=== PATIENT | female | born 1945 | race Caucasian/White ===

== ENCOUNTER 2016-03-31 12:42 | Day surgery (SDC) | payer MEDICARE ==
[2016-03-31 13:00] VITALS: BP 130/88; PULSE 92; RESP 18; TEMP 97.4; O2SAT 94
[2016-03-31] MEDS ORDERED: CALC1TAB30 PO (13:21)
[2016-03-31] MEDS ORDERED: CHOL1TAB42 PO (13:21)
[2016-03-31] MEDS ORDERED: CALC500T42 PO (13:21)
[2016-03-31] MEDS ORDERED: PROC10TA PO (13:21)
[2016-03-31] MEDS ORDERED: B-COTAB41 PO (13:21)
[2016-03-31] MEDS ORDERED: MULT1TAB84 PO (13:21)
[2016-03-31] MEDS ORDERED: ASPI-110 PO (13:21)
[2016-03-31] MEDS ORDERED: FLUO1TAB3 PO (13:21)
[2016-03-31] MEDS ORDERED: ZOFR8TAB PO (13:21)
[2016-03-31 14:05] VITALS: BP 176/96; PULSE 74; RESP 20; TEMP 97.4; O2SAT 94
--- NOTE | 2016-03-31 14:11 | PD.RAD ---
Post Procedure Progress Note Pre Procedure Diagnosis: (1) Fibrin thrombus Post Procedure Diagnosis: (1) Fibrin thrombus Procedure Date: Mar 31, 2016 Supervising Radiologist: Eric Sr Plan of Activity Patient Condition: Good Additional Comments: Port evaluated. The port tubing is in the SVC with a fibrin sheath around the catheter. Contrast goes into the SVC. Fibrin sheath prevents blood withdraw. See PACS Report for procedural detail/treatment Eric Sr MD Mar 31, 2016 14:11
[2016-03-31] MEDS ORDERED: IOHEXOL 350 MG/ML 50 ML BTL (for RAD DIAG) IV ONE (14:25)
--- NOTE | 2016-03-31 14:39 | RADRPT ---
EXAM DATE/TIME: 03/31/2016 13:42 [facility] COMPARISON: No previous studies available for comparison. INDICATIONS : Patient presents with anal cancer in need of port patency evaluation due to inability to aspirate. MEDICAL HISTORY : History of breast cancer 2007 Anal cancer SURGICAL HISTORY : Breast cancer surgery Lumpectomy Port placement Tonsillectomy ENCOUNTER: Initial ACUITY: 1 day PAIN SCORE: 0/10 LOCATION: N/A FLUORO TIME: 0.3 minutes CONTRAST: 5 cc Omnipaque (iohexol) 350 ACCESS: Left subclavian vein MEDICATION(S): 1.) 400 units Heparin IV PROCEDURE : 1. Access of [id number]. 2. Port patency injection. The risks, benefits and alternatives to the procedure were explained and verbal and written consent w as obtained. The patient was placed supine. The port was prepped in sterile fashion. Full sterile t echnique was used, including cap, mask, sterile gloves and gown, and a large sterile sheet. Hand hyg iene and 2% chlorhexidine prep was utilized per protocol for cutaneous antisepsis with appropriate dr y time for site. The previously placed port was accessed and positive contrast was injected for evaluation. Injection demonstrates the tip of the catheter to be at the junction of the subclavian vein and SVC. There is a sizable fibrin sheath evident surrounding the catheter. The contrast which was injected does stay i ntravascular and can be seen within the SVC. CONCLUSION: 1. There is a large fibrin sheath around the distal aspect of the catheter. The injected contrast [place] s stay intravascular and can be seen within the SVC. Eric Sr MD on March 31, 2016 at 14:36 Board Certified Radiologist. This report was verified electronically.
== END 2016-03-31 14:30 | disposition home or self-care (01) ==
LOC: HSDC 12:42 → HRIP 12:49 → HSDC 14:30
PROVIDERS: ATTEND Internal Medicine Hematology & Oncology
DX: Z45.2 Encounter for adjustment and management of vascular access device (principal); C21.1 Malignant neoplasm of anal canal; Z85.3 Personal history of malignant neoplasm of breast
CPT/HCPCS: 36598; J1642; Q9967

== ENCOUNTER 2016-04-01 11:29 | Day surgery (SDC) | payer MEDICARE ==
[~2016-04-01 11:29] MED LIST: ASPI-110 PO; B-COTAB41 PO; CALC1TAB30 PO; CALC500T42 PO; CHOL1TAB42 PO; FLUO1TAB3 PO; MULT1TAB84 PO; PROC10TA PO; ZOFR8TAB PO
[2016-04-01 11:43] VITALS: BP 146/96; PULSE 74; RESP 20; TEMP 98; O2SAT 97
--- NOTE | 2016-04-01 14:13 | PD.RAD ---
Radiology Post PICC Prog Note Pre Procedure Diagnosis: (1) Anal carcinoma Post Procedure Diagnosis: (1) Anal carcinoma Procedure: Right PICC line placement Procedure Date: Apr 01, 2016 Supervising Radiologist Huan Jung Proceduralist/Assist: Chip Arcos RT(R)() Device Side: Right Turkish: 4 single lumen cm: 37 Catheter: Power PICC Plan of Activity Patient to Unit: ROPU Patient Condition: Good PICC line can be used immediately Huan Jung MD Apr 01, 2016 14:12
[2016-04-01] MEDS ORDERED: SODIUM CHLORIDE 0.9% FLUSH 5 ML FLUSH IVF PRN ×2 (14:15)
--- NOTE | 2016-04-01 14:17 | RADRPT ---
EXAM DATE/TIME: 04/01/2016 12:44 [facility] COMPARISON: No previous studies available for comparison. INDICATIONS : Patient with history of anal squamous cell carcinoma in need of PICC line placement for chemotherapy. MEDICAL HISTORY : Breast cancer, Radiation and chemotherapy 2006 SURGICAL HISTORY : Left breast lumpectomy and biopsy, Anal canal mass biopsy, Port placement, Sigmoidoscopy, Tonsillecto my ENCOUNTER: Initial ACUITY: 4-6 months PAIN SCORE: 0/10 FLUORO TIME: 0.35 minutes ACCESS: Right basilic vein MEDICATION(S): 1.) 200 units Heparin IV DEVICE(S): 1.) 4 Croatian single lumen 37 cm Xcela Power PICC PROCEDURE : 1. Ultrasound guidance for venous catheterization. 2. Fluoroscopic guidance. 3. Ultrasound & fluoroscopic guided central venous Power PICC line placement. The risks, benefits and alternatives to the procedure were explained and verbal and written consent w as obtained. The site was prepped in sterile fashion. Full sterile technique was used, including ca p, mask, sterile gloves and gown and a large sterile sheet. Hand hygiene and 2% chlorhexidine prep w as utilized per protocol for cutaneous antisepsis with appropriate dry time for site. The skin and s ubcutaneous tissues were infiltrated with local anesthetic solution. Under direct ultrasound guidance, a suitable vein was accessed and a measuring guidewire was introduc ed and positioned in the central venous system. The ultrasound images depicting access guidance were saved and stored to PACS for permanent record. A Power Injectable PICC line was cut to prescribed length and introduced, positioned with tip at the cavoatrial junction level. The line was flushed and secured per protocol. CONCLUSION: 1. Uncomplicated central venous Power PICC line placement. 2. The PICC line can be used immediately. Huan Jung MD on April 01, 2016 at 14:16 Board Certified Radiologist. This report was verified electronically.
[2016-04-02] MEDS ORDERED: SODIUM CHLORIDE 0.9% FLUSH 5 ML FLUSH IVF SCH (09:00)
== END 2016-04-01 13:05 | disposition home or self-care (01) ==
LOC: HROP 11:29 → HRIP 11:29 → HROP 13:05
PROVIDERS: ATTEND Internal Medicine Hematology & Oncology
DX: Z45.2 Encounter for adjustment and management of vascular access device (principal); C21.0 Malignant neoplasm of anus, unspecified; Z85.3 Personal history of malignant neoplasm of breast
CPT/HCPCS: 36569; 76937; 77001; C1751; J1642

== ENCOUNTER 2016-05-28 17:40 | Inpatient (IN) | payer MEDICARE ==
[~2016-05-28] VITALS: Ht 167.6 cm; Wt 57.3 kg
[2016-05-28 18:00] VITALS: BP 94/59; PULSE 105; RESP 18; TEMP 97.6; O2SAT 96
[2016-05-28 18:15] VITALS: BP 131/59; PULSE 89; RESP 18; O2SAT 96
[2016-05-28] MEDS ORDERED: ASPI81CH CHEW (18:24)
[2016-05-28] MEDS ORDERED: OXYC1CAP PO (18:24)
[2016-05-28] MEDS ORDERED: ONDANSETRON HCL 4 MG/2 ML VIAL IV PUSH ONE (19:00)
[2016-05-28] MEDS ORDERED: HYDROmorphone HCL PF 1 MG/ML VIAL IV PUSH ONE (19:00)
[2016-05-28] MEDS: SODIUM CHLOR 0.9% 1000 ML INJ 1,000 ML IV SCH (19:00)
--- NOTE | 2016-05-28 19:02 | PD ---
HPI Chief Complaint: Pain: Acute or Chronic Time Seen by Provider: 18:34 Travel History International Travel<30 days: No Contact w/Intl Traveler<30days: No Traveled to known affect area: No History of Present Illness HPI This 70-year-old female is complaining of sharp pain in the right upper quadrant of the abdomen, right lower chest laterally. She's been had some of this pain yesterday that seemed to get better and then came back again. The pain is aggravated by deep breathing. Pain is fairly severe at times. She is currently being treated for anal cancer. She has been getting radiation as well as chemotherapy. She finished her chemotherapy 2 weeks ago. She takes oxycodone for the pain. She had breast cancer about 10 years ago PFSH Past Medical History Depression: Yes Cancer: Yes (LEFT BREAST, ANUS) Chemotherapy: Yes Diminished Hearing: No Implanted Vascular Access Dvce: Yes (PORT TO LEFT CHEST (2006)) Radiation Therapy: Yes Tetanus Vaccination: > 5 Years Influenza Vaccination: No ?: Not Tubal Ligation: Yes Past Surgical History Other Surgery: Yes (LEFT LUMPECTOMY 2006) Social History Alcohol Use: Yes (WINE OR LIQUOR, RARE) Tobacco Use: No (E-CIGARETTE) Substance Use: No Allergies-Medications (Allergen,Severity, Reaction): Coded Allergies: No Known Allergies (Unverified , 05/28/16) Reported Meds & Prescriptions Reported Meds & Active Scripts Active Reported Aspirin 81 Mg Chew 81 Mg CHEW DAILY Oxycodone (Oxycodone HCl) 5 Mg Cap 5 Mg PO Q6H PRN Calcium 500 Mg Tab 500 Mg PO DAILY Vitamin D-3 (Cholecalciferol) 2,000 Unit Tab 1 Tab PO DAILY Vitamin B-Complex (B-Complex Vitamins) 1 Tab 1 Tab PO DAILY Multivitamin Adults (Multiple Vitamins W/ Minerals) 1 Tab 1 Tab PO DAILY Calcium 600 + D (Calcium Carbonate-Cholecalciferol) 600-200 Mg-Unit Tab 1 Tab PO DAILY Review of Systems General / Constitutional: No: Fever, Chills Eyes: No: Diploplia, Blurred Vision HENT: No: Headaches Cardiovascular: Positive: Chest Pain or Discomfort Respiratory: Positive: Pleuritic Pain Gastrointestinal: Positive: Diarrhea, Abdominal Pain Genitourinary: No: Urgency, Frequency Musculoskeletal: No: Myalgias, Arthralgias Skin: No Rash, No Itching Neurologic: Positive: Weakness Psychiatric: No: Anxiety, Depression Physical Exam Narrative GENERAL: Chronically ill-appearing female SKIN: Warm and dry. HEAD: Atraumatic. Normocephalic. EYES: Pupils equal and round. No scleral icterus. No injection or drainage. ENT: No nasal bleeding or discharge. Mucous membranes pink and moist. NECK: Trachea midline. No JVD. CARDIOVASCULAR: Regular rate and rhythm. No murmur appreciated. RESPIRATORY: No accessory muscle use. Clear to auscultation. Breath sounds equal bilaterally. GASTROINTESTINAL: Abdomen soft, non-tender, nondistended. Hepatic and splenic margins not palpable. There is some right upper quadrant tenderness MUSCULOSKELETAL: No obvious deformities. No clubbing. No cyanosis. No edema. NEUROLOGICAL: Awake and alert. No obvious cranial nerve deficits. Motor grossly within normal limits. Normal speech. PSYCHIATRIC: Appropriate mood and affect; insight and judgment normal. Data Data Last Documented VS Vital Signs Date Time Temp Pulse Resp B/P Pulse Ox O2 Delivery O2 Flow Rate FiO2 05/28/16 19:30 Nasal Cannula 2 05/28/16 19:15 97.7 92 28 118/65 96 Orders Complete Blood Count With Diff (05/28/16 18:49) Comprehensive Metabolic Panel (05/28/16 18:49) Urinalysis - C+S If Indicated (05/28/16 18:49) Ct Abd/Pel W Iv Contrast(Rout) (05/28/16 18:49) Sodium Chlor 0.9% 1000 Ml Inj (Ns 1000 M (05/28/16 19:00) Ondansetron Inj (Zofran Inj) (05/28/16 19:00) Hydromorphone Pf Inj (Dilaudid Pf Inj) (05/28/16 19:00) Ct Pulmonary Angiogram (05/28/16 ) Urine Culture (05/28/16 19:12) Iohexol 350 Inj (Omnipaque 350 Inj) (05/28/16 20:45) Prothrombin Time / Inr (Pt) (05/28/16 20:50) Act Partial Throm Time (Ptt) (05/28/16 20:50) Labs Laboratory Tests Test 05/28/16 05/28/16 19:12 19:17 Urine Color YELLOW Urine Turbidity CLEAR Urine pH 6.0 Urine Specific [place] 1.028 Urine Protein TRACE mg/dL Urine Glucose (UA) NEG mg/dL Urine Ketones NEG mg/dL Urine Occult Blood NEG Urine Nitrite NEG Urine Bilirubin NEG Urine Leukocyte Esterase TRACE Urine WBC 20-24 /hpf Urine Squamous Epithelial > 8 /hpf Cells Urine Bacteria FEW /hpf Urine Mucus FEW /lpf Microscopic Urinalysis Comment CULTURE INDICATED White Blood Count 5.1 TH/MM3 Red Blood Count 2.97 MIL/MM3 Hemoglobin 9.6 GM/DL Hematocrit 28.1 % Mean Corpuscular Volume 94.8 FL Mean Corpuscular Hemoglobin 32.4 PG Mean Corpuscular Hemoglobin 34.1 % Concent Red Cell Distribution Width 17.4 % Platelet Count 197 TH/MM3 Mean Platelet Volume 7.7 FL Neutrophils (%) (Auto) 80.7 % Lymphocytes (%) (Auto) 6.3 % Monocytes (%) (Auto) 10.3 % Eosinophils (%) (Auto) 2.3 % Basophils (%) (Auto) 0.4 % Neutrophils # (Auto) 4.2 TH/MM3 Lymphocytes # (Auto) 0.3 TH/MM3 Monocytes # (Auto) 0.5 TH/MM3 Eosinophils # (Auto) 0.1 TH/MM3 Basophils # (Auto) 0.0 TH/MM3 CBC Comment DIFF FINAL Differential Comment Sodium Level 136 MEQ/L Potassium Level 4.2 MEQ/L Chloride Level 100 MEQ/L Carbon Dioxide Level 27.0 MEQ/L Anion Gap 9 MEQ/L Blood Urea Nitrogen 21 MG/DL Creatinine 0.69 MG/DL Estimat Glomerular Filtration 84 ML/MIN Rate Random Glucose 99 MG/DL Calcium Level 9.0 MG/DL Total Bilirubin 0.4 MG/DL Aspartate Amino Transf 19 U/L (AST/SGOT) Alanine Aminotransferase 27 U/L (ALT/SGPT) Alkaline Phosphatase 58 U/L Total Protein 7.2 GM/DL Albumin 3.2 GM/DL [facility] Medical Decision Making Medical Screen Exam Complete: Yes Emergency Medical Condition: Yes Medical Record Reviewed: Yes Differential Diagnosis This lady undergoing treatment for squamous cell cancer of the anus has had a fairly recent onset of pain in the right upper quadrant, right lower chest. Differential includes pulmonary embolus, metastatic disease to liver or lung Narrative Course CT scan is positive for pulmonary embolus in the right lower lobe pulmonary arteries. Diagnosis Primary Impression: Pulmonary embolus Admitting Information Admitting Physician Requests: Admit Brennon Gomez MD May 28, 2016 19:02
[2016-05-28 19:15] VITALS: BP 118/65; PULSE 92; RESP 28; TEMP 97.7; O2SAT 96
[2016-05-28 19:30] LABS: BLOOD, URINE NEG (NEG); GLUCOSE,URINE NEG (NEG); KETONE, URINE NEG (NEG); NITRITE,URINE NEG (NEG)
[2016-05-28 19:34] LABS: URINE COLOR YELLOW (YELLW/STRAW)
[2016-05-28 19:37] LABS: CHLORIDE 100 MEQ/L (98-107); POTASSIUM 4.2 MEQ/L (3.5-5.1); SODIUM (NA) 136 MEQ/L (136-145)
[2016-05-28 19:40] LABS: BACTERIA, URINE FEW /hpf; SQUAMOUS EPITHELIAL CELL URINE > 8 /hpf (0-5)
[2016-05-28 19:41] LABS: COMMENT (UR) CULTURE INDICATED; CULTURE IF INDICATED CULTURE INDICATED; MUCUS URINE FEW /lpf (OCC)
[2016-05-28 19:41] LABS: ANION GAP 9 MEQ/L (5-15); BLOOD UREA NITROGEN 21 MG/DL (7-18)
[2016-05-28 19:44] LABS: ALT (GPT) 27 U/L (10-53); AST (GOT) 19 U/L (15-37); GLOMERULAR FILTRATION RATE 84 ML/MIN (>89)
[2016-05-28 19:46] LABS: TOTAL BILIRUBIN ADULT 0.4 MG/DL (0.2-1.0)
[2016-05-28 19:47] LABS: ALKALINE PHOSPHATASE 58 U/L (45-117)
[2016-05-28 19:52] LABS: AUTOMATED NEUTROPHIL # 4.2 TH/MM3 (1.8-7.7); BASOPHIL % 0.4 % (0.0-2.0); EOSINOPHIL # 0.1 TH/MM3 (0-0.4); EOSINOPHIL % 2.3 % (0.0-4.0); HEMATOCRIT 28.1 % (35.0-46.0); HEMO FLAGS DIFF FINAL; LYMPH % 6.3 % (9.0-44.0); LYMPHOCYTE # 0.3 TH/MM3 (1.0-4.8); MEAN CELL VOLUME 94.8 FL (80.0-100.0); MEAN CORPUSCULAR HEMOGLOBIN 32.4 PG (27.0-34.0); MEAN CORPUSCULAR HGB CONC 34.1 % (32.0-36.0); MONO % 10.3 % (0.0-8.0); NEUT % 80.7 % (16.0-70.0); PLATELET COUNT 197 TH/MM3 (150-450); RED BLOOD COUNT 2.97 MIL/MM3 (4.00-5.30); RED CELL DISTRIBUTION WIDTH 17.4 % (11.6-17.2); WHITE BLOOD COUNT 5.1 TH/MM3 (4.0-11.0)
[2016-05-28] MEDS ORDERED: IOHEXOL 350 MG/ML 10 ML VIAL (for RAD DIAG) IV ONE (20:45)
--- NOTE | 2016-05-28 20:58 | RADHPO ---
EXAM DATE/TIME: 05/28/2016 20:16 [facility] COMPARISON: No previous studies available for comparison. INDICATIONS : Right lower chest pain. Shortness of breath. IV CONTRAST: 100 cc Omnipaque 350 (iohexol) IV ; Cumulative dose for multiple exams. RADIATION DOSE: 6.09 CTDIvol (mGy) MEDICAL HISTORY : Carcinoma, anal. Carcinoma, breast. Radiation and chemotherapy. SURGICAL HISTORY : Tubal ligation. Left lumpectomy. Infusaport. ENCOUNTER: Initial ACUITY: 4 - 6 days PAIN SCALE: 3/10 LOCATION: Right lower chest TECHNIQUE: Volumetric scanning of the chest was performed using a pulmonary embolism protocol MIP images were re constructed. Using automated exposure control and adjustment of the mA and/or kV according to patien t size, radiation dose was kept as low as reasonably achievable to obtain optimal diagnostic quality images. FINDINGS: There is pulmonary embolus in the right lower lobe pulmonary arteries. Slight areas of scarring is seen in both lungs with a slight degree of bibasilar atelectasis and/or infiltrate. CONCLUSION: 1. There is pulmonary embolus within right lower lobe pulmonary arteries. 2. Slight bibasilar atelectasis and/or infiltrate is seen. Huber Rico MD on May 28, 2016 at 20:54 Board Certified Radiologist. This report was verified electronically.
--- NOTE | 2016-05-28 21:05 | RADHPO ---
EXAM DATE/TIME: 05/28/2016 20:16 [facility] COMPARISON: No previous studies available for comparison. INDICATIONS : Right upper quadrant pain. History of anal cancer. IV CONTRAST: 100 cc Omnipaque 350 (iohexol) IV ; Cumulative dose for multiple exams. ORAL CONTRAST: No oral contrast ingested. RADIATION DOSE: 7.47 CTDIvol (mGy) MEDICAL HISTORY : Carcinoma, breast. Carcinoma, anal. Radiation therapy. Chemotherapy. SURGICAL HISTORY : Tubal ligation. Left lumpectomy. Infusaport. ENCOUNTER: Initial ACUITY: 4 - 6 days PAIN SCALE: 3/10 LOCATION: Right upper quadrant TECHNIQUE: Volumetric scanning of the abdomen and pelvis was performed. Using automated exposure control and ad justment of the mA and/or kV according to patient size, radiation dose was kept as low as reasonably achievable to obtain optimal diagnostic quality images. FINDINGS: CT Abdomen: The liver, spleen, pancreas, kidneys, adrenals are unremarkable. There is no evidence for any appreciable pathological adenopathy, free fluid, or bowel obstruction. Slight bibasilar atelect asis and/or infiltrate is seen. CT pelvis: There is no evidence for mass, abscess formation, or any significant adenopathy within the pelvis. CONCLUSION: Slight bibasilar atelectasis and/or infiltrate is seen. Huber Rico MD on May 28, 2016 at 20:59 Board Certified Radiologist. This report was verified electronically.
[2016-05-28 21:10] LABS: APTT (PATIENT) 24.6 SEC (24.3-30.1); PROTHROMBIN TIME - PATIENT 10.9 SEC (9.8-11.6)
[2016-05-28] MEDS ORDERED: HEPARIN-D5W INJ 250 ML IV SCH (21:15)
[2016-05-28] MEDS ORDERED: HEPARIN SODIUM - IV 10,000 UNITS/10 ML VIAL IV ONE (21:15)
[2016-05-28] MEDS ORDERED: cefTRIAXone INJ 1,000 MG in SODIUM CHLORIDE 0.9% INJ 100 ML IV ONE (21:30)
[2016-05-28] MEDS: HEPARIN-D5W INJ 250 ML IV SCH (21:42)
[2016-05-28 21:51] VITALS: BP 108/62; PULSE 86; O2SAT 97
--- NOTE | 2016-05-28 22:05 | HHI.HP ---
HPI Service CP Hospitalists Primary Care Physician Fanny Cuevas MD Admission Diagnosis PULMONARY EMBOLUS Chief Complaint: Shortness of breath sent by PCP Travel History International Travel<30 Days: No Contact w/Intl Traveler <30 Da: No Traveled to Known Affected Are: No History of Present Illness This 70-year-old female is complaining of sharp pain in the right upper quadrant of the abdomen, right lower chest laterally. She's been had some of this pain yesterday that seemed to get better and then came back again. The pain is aggravated by deep breathing. Pain is fairly severe at times. She is currently being treated for anal cancer. She has been getting radiation as well as chemotherapy. She finished her chemotherapy 2 weeks ago. She takes oxycodone for the pain. She had breast cancer about 10 years ago In er had CTA positive for rt lower lobe pulmonary embolus,also has UTI and possible lung infiltrate. Review of Systems Respiratory: COMPLAINS OF: Shortness of breath Cardiovascular: COMPLAINS OF: Chest pain Past Family Social History Past Medical History anal cancer on RT and chemo,hx left breast cancer Past Surgical History port left chest,left lumpectomy Reported Medications oxycodone multiple vitamins ,asa Allergies: Coded Allergies: No Known Allergies (Unverified , 05/28/16) Social History rare wine uses e cigg Physical Exam Vital Signs Vital Signs Date Time Temp Pulse Resp B/P Pulse Ox O2 Delivery O2 Flow Rate FiO2 05/28/16 21:51 86 108/62 97 Room Air 05/28/16 19:30 Nasal Cannula 2 05/28/16 19:15 97.7 92 28 118/65 96 Room Air 05/28/16 18:15 89 18 131/59 96 Room Air 05/28/16 18:00 97.6 105 18 94/59 96 Physical Exam GENERAL: This is a well-nourished, well-developed patient, in no apparent distress. SKIN: No rashes, ecchymoses or lesions. Cool and dry. HEAD: Atraumatic. Normocephalic. No temporal or scalp tenderness. EYES: Pupils equal round and reactive. Extraocular motions intact. No scleral icterus. No injection or drainage. ENT: Nose without bleeding, purulent drainage or septal hematoma. Throat without erythema, tonsillar hypertrophy or exudate. Uvula midline. Airway patent. NECK: Trachea midline. No JVD or lymphadenopathy. Supple, nontender, no meningeal signs. CARDIOVASCULAR: Regular rate and rhythm without murmurs, gallops, or rubs. RESPIRATORY: Clear to auscultation. Breath sounds equal bilaterally. No wheezes , rales, or rhonchi. GASTROINTESTINAL: Abdomen soft, non-tender, nondistended. No hepato-splenomegaly , or palpable masses. No guarding. MUSCULOSKELETAL: Extremities without clubbing, cyanosis, or edema. No joint tenderness, effusion, or edema noted. No calf tenderness. Negative Homans sign bilaterally. NEUROLOGICAL: Awake and alert. Cranial nerves II through XII intact. Motor and sensory grossly within normal limits. Five out of 5 muscle strength in all muscle groups. Normal speech. Laboratory Laboratory Tests Test 05/28/16 05/28/16 05/28/16 19:12 19:17 19:19 Urine Color YELLOW Urine Turbidity CLEAR Urine pH 6.0 Urine Specific [place] 1.028 Urine Protein TRACE Urine Glucose (UA) NEG Urine Ketones NEG Urine Occult Blood NEG Urine Nitrite NEG Urine Bilirubin NEG Urine Leukocyte Esterase TRACE Urine WBC 20-24 Urine Squamous Epithelial > 8 Cells Urine Bacteria FEW Urine Mucus FEW Microscopic Urinalysis Comment CULTURE INDICATED White Blood Count 5.1 Red Blood Count 2.97 Hemoglobin 9.6 Hematocrit 28.1 Mean Corpuscular Volume 94.8 Mean Corpuscular Hemoglobin 32.4 Mean Corpuscular Hemoglobin 34.1 Concent Red Cell Distribution Width 17.4 Platelet Count 197 Mean Platelet Volume 7.7 Neutrophils (%) (Auto) 80.7 Lymphocytes (%) (Auto) 6.3 Monocytes (%) (Auto) 10.3 Eosinophils (%) (Auto) 2.3 Basophils (%) (Auto) 0.4 Neutrophils # (Auto) 4.2 Lymphocytes # (Auto) 0.3 Monocytes # (Auto) 0.5 Eosinophils # (Auto) 0.1 Basophils # (Auto) 0.0 CBC Comment DIFF FINAL Differential Comment Sodium Level 136 Potassium Level 4.2 Chloride Level 100 Carbon Dioxide Level 27.0 Anion Gap 9 Blood Urea Nitrogen 21 Creatinine 0.69 Estimat Glomerular Filtration 84 Rate Random Glucose 99 Calcium Level 9.0 Total Bilirubin 0.4 Aspartate Amino Transf 19 (AST/SGOT) Alanine Aminotransferase 27 (ALT/SGPT) Alkaline Phosphatase 58 Total Protein 7.2 Albumin 3.2 Prothrombin Time 10.9 Prothromb Time International 1.0 Ratio Activated Partial 24.6 Thromboplast Time Date/Time Procedure Status Source Growth 05/28/16 19:12 Urine Culture Received Urine Clean Catch Pending Result Diagram: 05/28/16191605/28/161916 Imaging Last 24 hours Impressions Abdomen/Pelvis CT 05/28/16 1849 Signed Impressions: Service Date/Time: May 20:16 - CONCLUSION: Slight bibasilar atelectasis and/or infiltrate is seen. Huber Rico MD CT Angiography 05/28/16 0000 Signed Impressions: Service Date/Time: May 20:16 - CONCLUSION: 1. There is pulmonary embolus within right lower lobe pulmonary arteries. 2. Slight bibasilar atelectasis and/or infiltrate is seen. Huber Rico MD Course in er started on heparin and given rocephin for urine and possible infiltrate Assessment and Plan Problem List: (1) Pulmonary embolus Status: Acute Plan: start heparin as per protocol (2) UTI (urinary tract infection) Status: Acute Plan: start rocephin pending urine culture (3) Lung infiltrate Status: Acute Plan: for now continue rocephin (4) Anal carcinoma Status: Chronic Plan: on treatment will consult oncology Assessment and Plan further plan as case develops Code Status full Discussed Condition With patient Physician Certification 2 Midnight Certification Type: Admission for Inpatient Services Order for Inpatient Services The services are ordered in accordance with Medicare regulations or non- Medicare payer requirements, as applicable. In the case of services not specified as inpatient-only, they are appropriately provided as inpatient services in accordance with the 2-midnight benchmark. Estimated LOS (days): 3 3 days is the estimated time the patient will need to remain in the hospital, assuming treatment plan goals are met and no additional complications. Post-Hospital Plan: Not yet determined Problem Qualifiers (1) Pulmonary embolus: Elpidio James MD May 28, 2016 22:05
[2016-05-28] MEDS ORDERED: SODIUM CHLORIDE 0.9% FLUSH 5 ML FLUSH FLUSH PRN (22:15)
[2016-05-28] MEDS ORDERED: NALOXONE HCL 0.4 MG/ML AMP IV PRN (22:15)
[2016-05-28] MEDS ORDERED: BISACODYL 10 MG SUPP PR PRN (22:15)
[2016-05-28] MEDS ORDERED: ONDANSETRON HCL 4 MG/2 ML VIAL IVP PRN (22:15)
[2016-05-28] MEDS ORDERED: cefTRIAXone INJ 1,000 MG in SODIUM CHLORIDE 0.9% INJ 100 ML IV SCH (23:00)
[2016-05-28 23:30] VITALS: BP 127/69; PULSE 90; RESP 17; TEMP 98.4; O2SAT 94; O2SAT 96
[2016-05-29] VITALS (28 sets, daily range): BP systolic 92–132; BP diastolic 55–70; PULSE 72–90; RESP 15–45; TEMP 98–98.5; O2SAT 93–97
[2016-05-29] MEDS: SODIUM CHLOR 0.9% 1000 ML INJ 1,000 ML IV SCH ×3 (03:15→20:17)
[2016-05-29] MEDS ORDERED: HEPARIN SODIUM - IV 10,000 UNITS/10 ML VIAL IV PRN ×2 (03:15)
[2016-05-29] MEDS ORDERED: CHLORHEXIDINE GLUCONATE 2 % 1 PACK (2 CLOTHS)(extra cloths) TOP PRN (03:30)
[2016-05-29 03:35] LABS: APTT (PATIENT) 54.1 SEC (24.3-30.1)
[2016-05-29] MEDS: CHLORHEXIDINE GLUCONATE 2 % 1 PACK (2 CLOTHS)(taper/protocol) TOP SCH (04:00)
[2016-05-29] MEDS: CALCIUM/VITAMIN D 250 MG/125 U TAB PO SCH (08:49)
[2016-05-29] MEDS: MULTIVITAMINS/MINERALS THERAPEUTIC TAB PO SCH (08:49)
[2016-05-29] MEDS: VITAMIN B COMPLEX/VIT C TAB PO SCH (08:49)
[2016-05-29] MEDS: CALCIUM CARBONATE 1.25 GM (CA 500 MG) TAB PO SCH (08:49)
[2016-05-29] MEDS: CHOLECALCIFEROL (VIT D3) 1000 UNIT TAB PO SCH (08:49)
[2016-05-29] MEDS: SODIUM CHLORIDE 0.9% FLUSH 5 ML FLUSH FLUSH SCH ×2 (08:50→20:17)
[2016-05-29 09:21] LABS: AUTOMATED NEUTROPHIL # 2.1 TH/MM3 (1.8-7.7); BASOPHIL % 0.5 % (0.0-2.0); EOSINOPHIL # 0.1 TH/MM3 (0-0.4); HEMATOCRIT 25.8 % (35.0-46.0); HEMO FLAGS DIFF FINAL; LYMPH % 7.6 % (9.0-44.0); LYMPHOCYTE # 0.2 TH/MM3 (1.0-4.8); MEAN CELL VOLUME 94.9 FL (80.0-100.0); MEAN CORPUSCULAR HGB CONC 32.6 % (32.0-36.0); MONO % 12.8 % (0.0-8.0); NEUT % 74.1 % (16.0-70.0); PLATELET COUNT 170 TH/MM3 (150-450); RED BLOOD COUNT 2.71 MIL/MM3 (4.00-5.30); RED CELL DISTRIBUTION WIDTH 16.9 % (11.6-17.2); WHITE BLOOD COUNT 2.9 TH/MM3 (4.0-11.0)
[2016-05-29 09:51] LABS: APTT (PATIENT) 50.9 SEC (24.3-30.1)
--- NOTE | 2016-05-29 10:49 | HHI.PR ---
Subjective Remarks Patient admitted with pulmonary embolus ,uti,possible infiltrate with recent completion of RT and chemo for anal cancer with follow up CT scan scheduled later this month . I have requested hematology to see patient is now on heparin and her hbg is down to 8.2 ,patient has some pleuritic pain related to her PE otherwise feels well,eating good. I will kept in unit as her labs were abnormal and still has pleuritic pain. Objective Vitals GENERAL: SKIN: Warm and dry. HEAD: Atraumatic. Normocephalic. EYES: Pupils equal and round. No scleral icterus. No injection or drainage. ENT: No nasal bleeding or discharge. Mucous membranes pink and moist. NECK: Trachea midline. No JVD. CARDIOVASCULAR: Regular rate and rhythm. RESPIRATORY: No accessory muscle use. Clear to auscultation. Breath sounds equal bilaterally. GASTROINTESTINAL: Abdomen soft, non-tender, nondistended. Hepatic and splenic margins not palpable. MUSCULOSKELETAL: Extremities without clubbing, cyanosis, or edema. No obvious deformities. NEUROLOGICAL: Awake and alert. No obvious cranial nerve deficits. Motor grossly within normal limits. Five out of 5 muscle strength in the arms and legs. Normal speech. PSYCHIATRIC: Appropriate mood and affect; insight and judgment normal. Vital Signs Date Time Temp Pulse Resp B/P Pulse Ox O2 Delivery O2 Flow Rate FiO2 05/29/16 10:00 80 22 122/66 96 05/29/16 10:00 80 05/29/16 09:00 80 05/29/16 09:00 80 29 115/66 95 05/29/16 08:00 98.2 78 23 117/58 96 05/29/16 08:00 78 05/29/16 07:00 78 05/29/16 07:00 78 20 104/62 97 05/29/16 06:00 80 05/29/16 06:00 78 20 110/67 95 05/29/16 05:00 82 21 114/58 94 05/29/16 04:00 98.5 80 15 120/63 96 05/29/16 04:00 80 05/29/16 03:00 72 15 112/68 96 05/29/16 02:00 76 17 92/57 95 05/29/16 02:00 81 05/29/16 01:00 80 22 111/63 96 05/29/16 00:00 98.4 90 20 130/60 97 3/2/17 23:30 98.4 90 17 127/69 96 05/28/16 23:30 94 Nasal Cannula 2.00 05/28/16 21:51 86 108/62 97 Room Air 05/28/16 19:30 Nasal Cannula 2 05/28/16 19:15 97.7 92 28 118/65 96 Room Air 05/28/16 18:15 89 18 131/59 96 Room Air 05/28/16 18:00 97.6 105 18 94/59 96 05/28/16 05/28/16 05/29/16 15:00 23:00 07:00 Intake Total 100 ml 905 ml Output Total 80 ml 800 ml Balance 20 ml 105 ml Intake Oral 30 ml IV Total 100 ml 875 ml Output Urine Total 80 ml 800 ml # Voids 1 # Bowel Movements 0 Result Diagram: 05/29/16 0900 05/28/16 1917 Imaging Last 24 hours Impressions Abdomen/Pelvis CT 05/28/16 1849 Signed Impressions: Service Date/Time: May 20:16 - CONCLUSION: Slight bibasilar atelectasis and/or infiltrate is seen. Huber Rico MD CT Angiography 05/28/16 0000 Signed Impressions: Service Date/Time: May 20:16 - CONCLUSION: 1. There is pulmonary embolus within right lower lobe pulmonary arteries. 2. Slight bibasilar atelectasis and/or infiltrate is seen. Huber Rico MD A/P Problem List: (1) Pulmonary embolus Status: Acute Plan: start heparin as per protocol (2) UTI (urinary tract infection) Status: Acute Plan: start rocephin pending urine culture (3) Lung infiltrate Status: Acute Plan: for now continue rocephin (4) Anal carcinoma Status: Chronic Plan: on treatment will consult oncology (5) Anemia Status: Chronic Plan: probably related to her recent treatment with chemo and now on heparin await hematology evaluation. Follow up labs. Assessment and Plan continue current meds Problem Qualifiers (1) Pulmonary embolus: Elpidio James MD May 29, 2016 10:49
--- NOTE | 2016-05-29 13:20 | MB ---
cc: [facility]ON[facility]Y CONSULTATION DATE OF CONSULTATION 05/29/2016 DATE OF 07/09/1935 REFERRING PHYSICIAN [facility] physician REASON FOR CONSULTATION 1. Right-sided pulmonary embolus 2. Symptomatic anemia 3. History of anal squamous cell carcinoma; she completed concurrent chemoradiotherapy two weeks ago. CHIEF COMPLAINT Ms. Bonilla reports having had a right-sided posterolateral chest pain for the past 12 days. She reports it was associated with a cough for the past four days. HISTORY OF PRESENT ILLNESS Ms. Bonilla is a pleasant 70-year-old female who is well-known to me from my outpatient practice. Ms. Bonilla was initially referred to me in early February of 2016 after she was diagnosed with a squamous cell carcinoma of the anal canal. She was clinically staged as having T2, N1, M0; stage III disease. She was recommended concurrent chemoradiotherapy with Mitomycin-C/5-FU. She received two treatments cycles between early March 2016 and mid April 2016. She complete treatment just about two weeks ago. The treatment was delivered with curative intent. Ms. Bonilla reports having been in her fair state of health other than having had significant fatigue, but she but had been managing well at home. About 12 days ago, she began to notice an achy pain along the right side of her mid back. The pain radiated across to the lateral aspect of her chest. She reports the pain was worse when she coughed or took in a deep breath. She denies having had any hemoptysis and denies significant difficulty breathing. She reported the symptoms to her primary care physician who recommended evaluation in the emergency department. She presented to the [facility] ER on 05/28/[address] angiogram which revealed pulmonary embolus involving the right lung. The involved branches included the right lower lobe subsegmental branches. She also had right-sided atelectasis/infiltrate. The patient has been initiated on anticoagulation with therapeutic dose heparin infusion. She is also on empiric ceftriaxone for coverage of community-acquired pneumonia. The oncology service been consulted to help manage her anticoagulation. The patient also has significant cytopenias including leukopenia and anemia. PAST MEDICAL HISTORY 1. Anal squamous cell carcinoma initially diagnosed in January of 2016. 2. Invasive ductal carcinoma of the breast currently in remission. 3. Hypertension 4. Depression 5. Osteoporosis PAST SURGICAL HISTORY 1. Left breast lumpectomy with sentinel lymph node biopsy. 2. Bilateral breast implants. 3. Infusion port placement 4. Tonsillectomy 5. Biopsy of anal mass in 2016. 6. Placement and then removal of PICC line. FAMILY HISTORY Mother of breast carcinoma at the age of 84. Father at the age of 77 of a massive heart attack. SOCIAL HISTORY The patient is . She does have a male partner. She is originally from [place]. She worked as a City plantar and in mass transit. She did have a daughter who unfortunately of complications from a motor vehicle collision related neurologic deficits. The patient previously was a tobacco smoker but quit many years ago. GYNECOLOGIC HISTORY 2, para 1, I believe. ALLERGIES NO KNOWN DRUG ALLERGIES. CURRENT INPATIENT MEDICATIONS 1. Heparin infusion per protocol 2. Ceftriaxone 1 gram IV q24h 3. Sodium chloride 125 cc/hour 4. Daily multivitamin 5. Dilaudid 0.5 mg IV q8h as needed for pain 6. Vitamin D3 1000 units p.o. daily 7. Dulcolax 10 mg per rectal suppository as needed daily for Constipation. 8. Zofran 4 mg IV q6h as needed for nausea and vomiting 9. Vitamin B complex 10. Multivitamin once daily 11. Temazepam 15 mg p.o. q.h.s. REVIEW OF SYSTEMS 13-point review of systems were obtained, the following are the pertinent positives and negatives. CONSTITUTIONAL: She reports having had fatigue, weakness, denies fevers, chills or night sweats. She has had some weight loss since starting her treatment. HEENT: Denies headaches, blurry vision, difficulty swallowing or soreness in the throat. RESPIRATORY: Reports pleuritic chest pain, denies cough or hemoptysis. CARDIOVASCULAR: Denies angina-like chest pain, PND, orthopnea. GI: Denies nausea, vomiting, diarrhea hematochezia or melena. She does have some blood tinged stools and some blood tinged discharge but denies overt bleeding. : No complaints. EXTREMITIES: Lower extremities have no pretibial edema or calf tenderness. No thigh tenderness. [employer]: No focal sensory or motor deficits. No other complaints reported. PHYSICAL EXAMINATION VITAL SIGNS: Temperature 98.5 degrees Fahrenheit, heart rate 78 beats minute, respiratory rate 24 breaths per minute, blood pressure 120/69, O2 sats 95% on two liters nasal cannula. GENERAL PHYSICAL APPEARANCE: Ms. Bonilla is an elderly female, she is laying in bed. She appears to be somewhat pale. She is not in acute respiratory distress. HEENT: Head atraumatic, normocephalic, conjunctive are pale, sclerae are anicteric, EOMI, PERRLA, oral exam no pharyngeal erythema. NECK: No palpable cervical or supraclavicular lymphadenopathy. RESPIRATORY: Good air movement over the upper and middle lung zones bilaterally. She has decreased bibasilar breath sounds. She indicates pain when she takes in a deep breath. CARDIOVASCULAR: Regular rate and rhythm, S1-S2. No obvious murmurs, rubs or gallops. ABDOMEN: Thin belly, soft and nontender, nondistended. No palpable organ enlargement. Specifically no hepatomegaly or splenomegaly. EXTREMITIES: Lower extremities have no pretibial edema or calf tenderness. [employer]: No focal sensory motor deficits. LABORATORY FINDINGS Blood work dated 05/29/2016: WBC count 2.9, hemoglobin 8.4 gm/dl, hematocrit 25.8%, platelet count 170, absolute neutrophil count 2.1. Chemistries: Sodium 136, potassium 4.2, chloride 100, bicarbonate 27, BUN 21, creatinine 0.69, EGFR 84, calcium 9, total bilirubin 0.4, AST 19, ALT 27, alkaline phosphatase 58, albumin 3.2. Coags: At presentation, PT 10.9, INR 1, PTT 24.6, serial PTT levels 54.1, 50.9, most recent check was at 09:00 a.m. this morning. IMAGING STUDIES CT angiogram dated 05/28/2016: Pulmonary embolus in the right lower lobe pulmonary arteries. Slight bibasilar atelectasis and/or infiltrate is noted. CT scan of the abdomen and pelvis dated 05/28/2016: Slight bibasilar atelectasis. No evidence of masses or adenopathy. ASSESSMENT Ms. 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 This was treated with surgical resection, adjuvant radiation therapy as well as adjuvant systemic chemotherapy including Herceptin. She has been in remission for the past close to 10 years. In January of 2016, she was diagnosed with a squamous cell carcinoma of the anal canal. Her disease was staged as T2, N1, M0 (she did have a perirectal lymph node which AVID on PET/CT scan). She was treated with concurrent chemoradiotherapy with curative intent. Treatment was started in early March 2016 and completed in mid April 2016. The patient tolerated treatment reasonably well and was awaiting post-treatment restaging scans as well as restaging physical examination. About 12 days ago, she began to notice a pain along the right side of her chest wall that originated in the posterior aspect and radiating laterally. It was worse with taking in deep breaths and coughing. She reported these symptoms to her primary care physician and was sent to the emergency department where a CT angiogram of the chest revealed a right lower lobe pulmonary embolism. The patient was initiated on anticoagulation with heparin. RECOMMENDATIONS Pulmonary emboli: Continue anticoagulation with heparin for the time being. When she not ready for discharge, we can transition her to oral Eliquis at a dose of 10 mg twice daily for one week followed by 5 mg twice daily. She may also go on Xarelto. Anemia and leukopenia: Likely secondary to chemotherapy related myelosuppression. I will however check serum iron studies and replace iron if needed. I will request ultrasound Doppler studies of the lower extremities to help identify possible origin of the pulmonary embolus. The oncology service will follow along with you. MD ANGELES Vallejo/ROMA /12:35 PM /12:58 PM
[2016-05-29 14:49] LABS: TRANSFERRIN IRON PROFILE 192 MG/DL (200-360)
[2016-05-29 14:51] LABS: FERRITIN 400 NG/ML (8-252)
--- NOTE | 2016-05-29 15:57 | RADHPO ---
EXAM DATE/TIME: 05/29/2016 20:27 [place] COMPARISON: No previous studies available for comparison. INDICATIONS : Pulmonary embolism. MEDICAL HISTORY : Dyspnea. Anal and breast cancer. Chemotherapy. Radiation therapy. SURGICAL HISTORY : Tubal ligation. Left lumpectomy. ENCOUNTER: Initial ACUITY: 1 day PAIN SCORE: 0/10 LOCATION: Bilateral legs. TECHNIQUE: Venous ultrasound of the left and right leg was performed from the inguinal ligament to the proximal calf. Real-time, color Doppler and spectral tracing, compression and augmentation techniques were us ed. FINDINGS: RIGHT LEG: Nonocclusive thrombus is seen in the right popliteal and peroneal veins. LEFT LEG: There is normal compressibility of the deep venous system from the inguinal region to the proximal ca lf. No echogenic clot is seen in the lumen of the common femoral, femoral, popliteal, and posterior tibial veins. There is a normal response of the venous system to proximal and distal augmentation an d respiration. CONCLUSION: Nonocclusive thrombus on the right as described above. Mauri Sr MD FACR on May 29, 2016 at 15:54 Board Certified Radiologist. This report was verified electronically.
[2016-05-29] MEDS: HEPARIN-D5W INJ 250 ML IV SCH (20:19)
[2016-05-29] MEDS: HYDROmorphone HCL PF 1 MG/ML VIAL IV PRN (20:29)
[2016-05-29] MEDS: cefTRIAXone INJ 1,000 MG in SODIUM CHLORIDE 0.9% INJ 100 ML IV SCH (21:39)
--- NOTE | 2016-05-29 23:11 | EKG ---
Date Performed: 05/28/2016 Time Performed: 22:55:58 PTAGE: 70 years EKG: Sinus rhythm . Lead(s) unsuitable for analysis: V4 Possible left atrial abnormality Leftward axis Left ventricular hypertrophy Septal and lateral ST-T changes may be due to hypertrophy and/or ischemia Abnormal ECG PREVIOUS TRACING : 05/28/2016 22.55 DOCTOR: Amalia Joe Interpretating Date/Time 05/29/2016 23:10:20
[2016-05-30] VITALS (48 sets, daily range): BP systolic 115–154; BP diastolic 55–82; PULSE 72–116; RESP 18–44; TEMP 97.6–98.5; O2SAT 81–97
[2016-05-30] MEDS: CHLORHEXIDINE GLUCONATE 2 % 1 PACK (2 CLOTHS)(taper/protocol) TOP SCH (05:28)
[2016-05-30] MEDS: SODIUM CHLOR 0.9% 1000 ML INJ 1,000 ML IV SCH ×3 (05:28→21:16)
[2016-05-30 06:30] LABS: CHLORIDE 107 MEQ/L (98-107); SODIUM (NA) 142 MEQ/L (136-145)
[2016-05-30 06:32] LABS: APTT (PATIENT) 49.3 SEC (24.3-30.1); AUTOMATED NEUTROPHIL # 2.2 TH/MM3 (1.8-7.7); BASOPHIL % 0.4 % (0.0-2.0); EOSINOPHIL # 0.2 TH/MM3 (0-0.4); EOSINOPHIL % 6.1 % (0.0-4.0); HEMO FLAGS DIFF FINAL; LYMPH % 7.6 % (9.0-44.0); LYMPHOCYTE # 0.2 TH/MM3 (1.0-4.8); MEAN CELL VOLUME 93.5 FL (80.0-100.0); MEAN CORPUSCULAR HEMOGLOBIN 32.6 PG (27.0-34.0); MEAN CORPUSCULAR HGB CONC 34.9 % (32.0-36.0); MONO % 11.9 % (0.0-8.0); PLATELET COUNT 169 TH/MM3 (150-450); RED BLOOD COUNT 2.46 MIL/MM3 (4.00-5.30); RED CELL DISTRIBUTION WIDTH 16.9 % (11.6-17.2); WHITE BLOOD COUNT 3.1 TH/MM3 (4.0-11.0)
[2016-05-30 06:46] LABS: ALKALINE PHOSPHATASE 47 U/L (45-117); ALT (GPT) 17 U/L (10-53); ANION GAP 7 MEQ/L (5-15); AST (GOT) 12 U/L (15-37); BICARBONATE 27.9 MEQ/L (21.0-32.0); BLOOD UREA NITROGEN 8 MG/DL (7-18); GLOMERULAR FILTRATION RATE 117 ML/MIN (>89); TOTAL BILIRUBIN ADULT 0.3 MG/DL (0.2-1.0)
[2016-05-30] MEDS: CHOLECALCIFEROL (VIT D3) 1000 UNIT TAB PO SCH (07:35)
[2016-05-30] MEDS: SODIUM CHLORIDE 0.9% FLUSH 5 ML FLUSH FLUSH SCH ×2 (07:35→21:14)
[2016-05-30] MEDS: VITAMIN B COMPLEX/VIT C TAB PO SCH (07:35)
[2016-05-30] MEDS: MULTIVITAMINS/MINERALS THERAPEUTIC TAB PO SCH (07:35)
[2016-05-30] MEDS: HYDROmorphone HCL PF 1 MG/ML VIAL IV PRN ×2 (07:35→19:46)
[2016-05-30] MEDS: CALCIUM/VITAMIN D 250 MG/125 U TAB PO SCH (07:35)
[2016-05-30] MEDS: CALCIUM CARBONATE 1.25 GM (CA 500 MG) TAB PO SCH (07:35)
--- NOTE | 2016-05-30 14:26 | HHI.PR ---
Subjective Remarks no complaints, chest pain is better, stools are more formed Objective Vitals Vital Signs Date Time Temp Pulse Resp B/P Pulse Ox O2 Delivery O2 Flow Rate FiO2 05/30/16 13:45 78 20 95 05/30/16 13:30 74 22 95 05/30/16 13:15 76 22 97 05/30/16 13:00 78 20 134/73 95 05/30/16 13:00 77 05/30/16 12:45 84 31 91 05/30/16 12:30 90 33 93 05/30/16 12:15 74 23 96 05/30/16 12:00 80 05/30/16 12:00 74 21 127/66 97 05/30/16 11:15 72 18 95 05/30/16 11:00 98.5 78 33 121/70 94 05/30/16 11:00 73 05/30/16 10:00 102 44 136/55 05/30/16 10:00 80 05/30/16 09:00 76 21 115/71 96 05/30/16 09:00 78 05/30/16 08:45 78 20 96 05/30/16 08:30 80 20 95 05/30/16 08:15 76 29 95 05/30/16 08:09 94 Nasal Cannula 2.00 05/30/16 08:00 98.3 82 32 119/66 95 05/30/16 08:00 77 05/30/16 07:45 78 23 93 05/30/16 07:30 74 25 96 05/30/16 07:15 76 25 97 05/30/16 07:00 80 29 141/68 93 05/30/16 07:00 86 05/30/16 06:00 72 05/30/16 06:00 76 28 139/66 95 05/30/16 05:00 72 05/30/16 05:00 78 22 127/73 94 05/30/16 04:00 98.2 102 23 140/78 95 05/30/16 04:00 77 05/30/16 03:00 82 21 118/66 93 05/30/16 02:00 82 22 119/63 93 05/30/16 02:00 87 05/30/16 01:00 80 21 116/65 93 05/30/16 00:00 80 05/30/16 00:00 98.1 82 24 116/66 93 05/29/16 23:00 82 30 112/58 93 05/29/16 22:00 82 25 110/64 94 05/29/16 22:00 83 05/29/16 21:00 82 21 110/60 94 05/29/16 20:59 27 05/29/16 20:50 94 Nasal Cannula 2.00 05/29/16 20:12 98.2 90 45 132/70 94 05/29/16 20:00 86 05/29/16 19:00 90 30 113/59 96 05/29/16 18:00 84 05/29/16 18:00 84 31 105/55 97 05/29/16 17:00 80 26 115/63 97 05/29/16 17:00 80 05/29/16 16:53 98.0 80 29 125/61 97 05/29/16 16:00 80 05/29/16 15:00 80 05/29/16 05/29/16 05/30/16 15:00 23:00 07:00 Intake Total 2316 ml 1110 ml Output Total 975 ml 450 ml Balance 1341 ml 660 ml Intake Oral 270 ml 60 ml IV Total 2046 ml 1050 ml Output Urine Total 975 ml 450 ml # Bowel Movements 0 1 Result Diagram: 05/30/16 0551 05/30/16 0551 Imaging Last Impressions Lower Extremity Ultrasound 05/29/16 0000 Signed Impressions: Service Date/Time: Sunday, May 29, 2016 20:27 - CONCLUSION: Nonocclusive thrombus on the right as described above. Mauri Sr MD FACR Abdomen/Pelvis CT 05/28/161848 Signed Impressions: Service Date/Time: May 20:16 - CONCLUSION: Slight bibasilar atelectasis and/or infiltrate is seen. Huber Rico MD CT Angiography 05/28/16 0000 Signed Impressions: Service Date/Time: May 20:16 - CONCLUSION: 1. There is pulmonary embolus within right lower lobe pulmonary arteries. 2. Slight bibasilar atelectasis and/or infiltrate is seen. Huber Rico MD Last 24 hours Impressions Abdomen/Pelvis CT 05/28/161848 Signed Impressions: Service Date/Time: May 20:16 - CONCLUSION: Slight bibasilar atelectasis and/or infiltrate is seen. Huber Rico MD CT Angiography 05/28/16 0000 Signed Impressions: Service Date/Time: May 20:16 - CONCLUSION: 1. There is pulmonary embolus within right lower lobe pulmonary arteries. 2. Slight bibasilar atelectasis and/or infiltrate is seen. Huber Rico MD Objective Remarks Lying in bed, nad on room air lungs cta bilaterally heart rrr not tachycardic +bowel sounds, non tender ext no c/c/e A/P Problem List: (1) Pulmonary embolus Status: Acute Plan: on heparin as per protocol . Per hematology may transition to eliquis or xarelto at discharge (2) UTI (urinary tract infection) Status: Resolved Plan: urine culture probable contamination (3) Lung infiltrate Status: Acute Plan: for now continue rocephin (4) Anal carcinoma Status: Chronic Plan: completed chemoradiotherapy , Dr Velez following (5) Anemia Status: Chronic Plan: probably related to her recent treatment with chemo and now on heparin , seen by hematology. monitor cbc Assessment and Plan continue current meds Problem Qualifiers (1) Pulmonary embolus: Fanny Cuevas MD May 30, 2016 14:26
[2016-05-30] MEDS: DOCUSATE SODIUM 100 MG CAP PO SCH (15:41)
[2016-05-30] MEDS: cefTRIAXone INJ 1,000 MG in SODIUM CHLORIDE 0.9% INJ 100 ML IV SCH (21:15)
[2016-05-30] MEDS: TEMAZEPAM 15 MG CAP PO PRN (23:27)
[2016-05-31] VITALS (24 sets, daily range): BP systolic 104–142; BP diastolic 56–84; PULSE 75–102; RESP 18–29; TEMP 98–98.8; O2SAT 93–99
[2016-05-31] MEDS: CHLORHEXIDINE GLUCONATE 2 % 1 PACK (2 CLOTHS)(taper/protocol) TOP SCH ×2 (03:59→22:55)
[2016-05-31 06:08] LABS: AUTOMATED NEUTROPHIL # 1.8 TH/MM3 (1.8-7.7); BASOPHIL % 0.3 % (0.0-2.0); EOSINOPHIL # 0.3 TH/MM3 (0-0.4); HEMATOCRIT 24.8 % (35.0-46.0); HEMO FLAGS DIFF FINAL; LYMPH % 9.1 % (9.0-44.0); LYMPHOCYTE # 0.2 TH/MM3 (1.0-4.8); MEAN CORPUSCULAR HEMOGLOBIN 31.5 PG (27.0-34.0); MEAN CORPUSCULAR HGB CONC 33.2 % (32.0-36.0); MONO % 13.5 % (0.0-8.0); NEUT % 66.1 % (16.0-70.0); PLATELET COUNT 189 TH/MM3 (150-450); RED BLOOD COUNT 2.61 MIL/MM3 (4.00-5.30); RED CELL DISTRIBUTION WIDTH 17.1 % (11.6-17.2); WHITE BLOOD COUNT 2.6 TH/MM3 (4.0-11.0)
[2016-05-31 06:30] LABS: APTT (PATIENT) 42.9 SEC (24.3-30.1)
[2016-05-31] MEDS: MULTIVITAMINS/MINERALS THERAPEUTIC TAB PO SCH (08:42)
[2016-05-31] MEDS: VITAMIN B COMPLEX/VIT C TAB PO SCH (08:42)
[2016-05-31] MEDS: CALCIUM CARBONATE 1.25 GM (CA 500 MG) TAB PO SCH (08:42)
[2016-05-31] MEDS: CALCIUM/VITAMIN D 250 MG/125 U TAB PO SCH (08:42)
[2016-05-31] MEDS: CHOLECALCIFEROL (VIT D3) 1000 UNIT TAB PO SCH (08:42)
[2016-05-31] MEDS: DOCUSATE SODIUM 100 MG CAP PO SCH (08:42)
[2016-05-31] MEDS: SODIUM CHLORIDE 0.9% FLUSH 5 ML FLUSH FLUSH SCH ×2 (08:43→21:07)
--- NOTE | 2016-05-31 13:20 | HHI.PR ---
Subjective Remarks less pain when she breathes, stools are better Objective Vitals Vital Signs Date Time Temp Pulse Resp B/P Pulse Ox O2 Delivery O2 Flow Rate FiO2 05/31/16 11:37 95 Nasal Cannula 2.00 05/31/16 11:00 102 05/31/16 11:00 102 24 123/84 93 05/31/16 10:00 84 18 104/56 99 05/31/16 10:00 82 05/31/16 09:00 82 05/31/16 09:00 82 23 142/83 95 05/31/16 08:00 98.0 76 22 133/67 96 05/31/16 08:00 80 05/31/16 07:00 79 05/31/16 07:00 76 26 113/60 95 05/31/16 06:00 75 20 129/82 95 05/31/16 06:00 75 05/31/16 05:00 76 05/31/16 05:00 76 27 137/75 95 05/31/16 04:00 98.2 78 27 128/75 93 05/31/16 04:00 78 05/31/16 03:00 76 25 125/66 95 05/31/16 03:00 76 05/31/16 02:00 78 05/31/16 02:00 78 22 107/64 94 05/31/16 01:00 108/68 05/31/16 01:00 76 05/31/16 01:00 76 29 96 05/31/16 00:00 98.0 76 28 119/70 97 05/31/16 00:00 76 05/30/16 23:00 78 26 133/73 94 05/30/16 23:00 78 05/30/16 22:17 95 Nasal Cannula 2.00 05/30/16 22:00 82 23 126/65 94 05/30/16 22:00 80 05/30/16 21:00 80 22 128/78 95 05/30/16 21:00 80 05/30/16 20:00 76 05/30/16 20:00 97.6 80 28 123/73 95 05/30/16 19:00 82 32 119/68 95 05/30/16 19:00 82 05/30/16 18:00 80 05/30/16 18:00 80 28 95 05/30/16 17:45 116 40 81 05/30/16 17:31 94 33 132/70 90 05/30/16 17:30 96 40 95 05/30/16 17:15 78 33 96 05/30/16 17:00 78 22 96 05/30/16 17:00 79 05/30/16 16:15 98.0 74 26 96 05/30/16 16:00 76 31 97 05/30/16 16:00 77 05/30/16 15:45 78 28 96 05/30/16 15:30 76 24 96 05/30/16 15:15 86 35 90 05/30/16 15:00 79 05/30/16 15:00 78 27 154/82 95 05/30/16 14:15 86 39 87 05/30/16 14:00 79 05/30/16 14:00 108 38 05/30/16 13:45 78 20 95 05/30/16 13:30 74 22 95 05/30/16 05/30/16 05/31/16 15:00 23:00 07:00 Intake Total 1640 ml 1386 ml 589 ml Output Total 650 ml 700 ml 1100 ml Balance 990 ml 686 ml -511 ml Intake Oral 450 ml 360 ml 60 ml IV Total 1190 ml 1026 ml 529 ml Output Urine Total 650 ml 700 ml 1100 ml # Voids 2 # Bowel Movements 1 1 3 Result Diagram: 05/31/16 0548 05/30/16 0551 Imaging Last Impressions Lower Extremity Ultrasound 05/29/16 0000 Signed Impressions: Service Date/Time: Sunday, May 29, 2016 20:27 - CONCLUSION: Nonocclusive thrombus on the right as described above. Mauri Sr MD FACR Abdomen/Pelvis CT 05/28/16 1849 Signed Impressions: Service Date/Time: May 20:16 - CONCLUSION: Slight bibasilar atelectasis and/or infiltrate is seen. Huber Rico MD CT Angiography 05/28/16 0000 Signed Impressions: Service Date/Time: May 20:16 - CONCLUSION: 1. There is pulmonary embolus within right lower lobe pulmonary arteries. 2. Slight bibasilar atelectasis and/or infiltrate is seen. Huber Rico MD Last 24 hours Impressions Abdomen/Pelvis CT 05/28/16 1849 Signed Impressions: Service Date/Time: May 20:16 - CONCLUSION: Slight bibasilar atelectasis and/or infiltrate is seen. Huber Rico MD CT Angiography 05/28/16 0000 Signed Impressions: Service Date/Time: May 20:16 - CONCLUSION: 1. There is pulmonary embolus within right lower lobe pulmonary arteries. 2. Slight bibasilar atelectasis and/or infiltrate is seen. Huber Rico MD Objective Remarks Lying in bed, nad on room air lungs cta bilaterally heart rrr not tachycardic +bowel sounds, non tender ext no c/c/e A/P Problem List: (1) Pulmonary embolus Status: Acute Plan: on heparin as per protocol . Per hematology may transition to eliquis or xarelto at discharge (2) UTI (urinary tract infection) Status: Resolved Plan: urine culture probable contamination (3) Lung infiltrate Status: Acute Plan: for now continue rocephin (4) Anal carcinoma Status: Chronic Plan: completed chemoradiotherapy , Dr Velez following (5) Anemia Status: Chronic Plan: probably related to her recent treatment with chemo and now on heparin , seen by hematology. monitor cbc ,h/h stable,hemmocult was negative Assessment and Plan continue current meds Problem Qualifiers (1) Pulmonary embolus: Fanny Cuevas MD May 31, 2016 13:20
[2016-05-31] MEDS: SODIUM CHLOR 0.9% 1000 ML INJ 1,000 ML IV SCH ×2 (17:05→21:22)
[2016-05-31] MEDS: HEPARIN-D5W INJ 250 ML IV SCH (17:07)
[2016-05-31] MEDS: HYDROmorphone HCL PF 1 MG/ML VIAL IV PRN (21:07)
[2016-05-31] MEDS: cefTRIAXone INJ 1,000 MG in SODIUM CHLORIDE 0.9% INJ 100 ML IV SCH (21:17)
[2016-06-01] VITALS: BP 126/82; PULSE 88; RESP 18; TEMP 98.9; O2SAT 94
[2016-06-01] MEDS: TEMAZEPAM 15 MG CAP PO PRN (01:34)
[2016-06-01 04:00] VITALS: BP 130/75; PULSE 81; RESP 18; TEMP 98.1; O2SAT 94
[2016-06-01] MEDS: SODIUM CHLOR 0.9% 1000 ML INJ 1,000 ML IV SCH (04:39)
[2016-06-01 06:57] LABS: AUTOMATED NEUTROPHIL # 1.7 TH/MM3 (1.8-7.7); BASOPHIL % 0.3 % (0.0-2.0); EOSINOPHIL # 0.3 TH/MM3 (0-0.4); EOSINOPHIL % 10.5 % (0.0-4.0); HEMATOCRIT 23.7 % (35.0-46.0); HEMO FLAGS DIFF FINAL; LYMPH % 9.7 % (9.0-44.0); LYMPHOCYTE # 0.3 TH/MM3 (1.0-4.8); MEAN CELL VOLUME 94.6 FL (80.0-100.0); MEAN CORPUSCULAR HEMOGLOBIN 32.8 PG (27.0-34.0); MEAN CORPUSCULAR HGB CONC 34.7 % (32.0-36.0); MONO % 12.9 % (0.0-8.0); NEUT % 66.6 % (16.0-70.0); PLATELET COUNT 185 TH/MM3 (150-450); RED BLOOD COUNT 2.51 MIL/MM3 (4.00-5.30); RED CELL DISTRIBUTION WIDTH 17.7 % (11.6-17.2); WHITE BLOOD COUNT 2.6 TH/MM3 (4.0-11.0)
[2016-06-01 06:58] LABS: CHLORIDE 108 MEQ/L (98-107); POTASSIUM 3.5 MEQ/L (3.5-5.1); SODIUM (NA) 143 MEQ/L (136-145)
[2016-06-01 07:00] LABS: APTT (PATIENT) 47.4 SEC (24.3-30.1)
[2016-06-01 07:02] LABS: ANION GAP 8 MEQ/L (5-15); BICARBONATE 26.8 MEQ/L (21.0-32.0)
[2016-06-01 07:03] LABS: BLOOD UREA NITROGEN 8 MG/DL (7-18)
[2016-06-01 07:05] LABS: ALT (GPT) 18 U/L (10-53); AST (GOT) 19 U/L (15-37)
[2016-06-01 07:06] LABS: GLOMERULAR FILTRATION RATE 135 ML/MIN (>89)
[2016-06-01 07:07] LABS: TOTAL BILIRUBIN ADULT 0.3 MG/DL (0.2-1.0)
[2016-06-01 07:08] LABS: ALKALINE PHOSPHATASE 47 U/L (45-117)
[2016-06-01 08:00] VITALS: BP 119/84; PULSE 79; RESP 16; TEMP 96.7; O2SAT 94; O2SAT 96
[2016-06-01] MEDS: SODIUM CHLORIDE 0.9% FLUSH 5 ML FLUSH FLUSH SCH (09:00)
[2016-06-01] MEDS: DOCUSATE SODIUM 100 MG CAP PO SCH (09:05)
[2016-06-01] MEDS: CALCIUM/VITAMIN D 250 MG/125 U TAB PO SCH (09:06)
[2016-06-01] MEDS: CHOLECALCIFEROL (VIT D3) 1000 UNIT TAB PO SCH (09:06)
[2016-06-01] MEDS: MULTIVITAMINS/MINERALS THERAPEUTIC TAB PO SCH (09:06)
[2016-06-01] MEDS: CALCIUM CARBONATE 1.25 GM (CA 500 MG) TAB PO SCH (09:06)
[2016-06-01] MEDS: VITAMIN B COMPLEX/VIT C TAB PO SCH (09:09)
[2016-06-01 12:00] VITALS: BP 142/86; PULSE 80; RESP 16; TEMP 97.3; O2SAT 96
--- NOTE | 2016-06-01 12:26 | HHI.PR ---
Subjective Remarks using IS, no pain on rt side with inspiration, ambulated rodriguez w/o sob, lightedenss or dizziness, eating, bm's still uncomfortable but better Objective Vitals Vital Signs Date Time Temp Pulse Resp B/P Pulse Ox O2 Delivery O2 Flow Rate FiO2 06/01/16 08:00 96.7 79 16 119/84 96 06/01/16 04:00 98.1 81 18 130/75 94 06/01/16 00:00 98.9 88 18 126/82 94 05/31/16 22:11 93 05/31/16 21:00 96 21 05/31/16 20:00 87 05/31/16 19:31 98.5 94 24 130/68 94 05/31/16 18:00 88 05/31/16 17:00 82 05/31/16 16:00 86 05/31/16 16:00 98.8 82 22 131/76 94 05/31/16 15:00 82 05/31/16 14:00 80 05/31/16 13:00 84 05/31/16 05/31/16 06/01/16 15:00 23:00 07:00 Intake Total 1344 ml 1337 ml 739 ml Output Total 650 ml 500 ml Balance 694 ml 837 ml 739 ml Intake Oral 600 ml 240 ml IV Total 744 ml 1097 ml 739 ml Output Urine Total 650 ml 500 ml # Voids 1 # Bowel Movements 1 1 Result Diagram: 06/01/16 0535 06/01/16 0535 Imaging Last Impressions Lower Extremity Ultrasound 05/29/16 0000 Signed Impressions: Service Date/Time: Sunday, May 29, 2016 20:27 - CONCLUSION: Nonocclusive thrombus on the right as described above. Mauri Sr MD FACR Abdomen/Pelvis CT 05/28/16 1849 Signed Impressions: Service Date/Time: May 20:16 - CONCLUSION: Slight bibasilar atelectasis and/or infiltrate is seen. Huber Rico MD CT Angiography 05/28/16 0000 Signed Impressions: Service Date/Time: May 20:16 - CONCLUSION: 1. There is pulmonary embolus within right lower lobe pulmonary arteries. 2. Slight bibasilar atelectasis and/or infiltrate is seen. Huber Rico MD Last 24 hours Impressions Abdomen/Pelvis CT 05/28/16 1849 Signed Impressions: Service Date/Time: May 20:16 - CONCLUSION: Slight bibasilar atelectasis and/or infiltrate is seen. Huber Rico MD CT Angiography 05/28/16 0000 Signed Impressions: Service Date/Time: May 20:16 - CONCLUSION: 1. There is pulmonary embolus within right lower lobe pulmonary arteries. 2. Slight bibasilar atelectasis and/or infiltrate is seen. Huber Rico MD Objective Remarks Lying in bed, nad on room air lungs cta bilaterally heart rrr not tachycardic +bowel sounds, non tender ext no c/c/e A/P Problem List: (1) Pulmonary embolus Status: Acute Plan: on heparin as per protocol . Per hematology may transition to eliquis or xarelto at discharge. Will discuss medication change with them today. (2) UTI (urinary tract infection) Status: Resolved Plan: urine culture probable contamination (3) Lung infiltrate Status: Acute Plan: on rocephin (4) Anal carcinoma Status: Chronic Plan: completed chemoradiotherapy , Dr Velez following (5) Anemia Status: Chronic Plan: probably related to her recent treatment with chemo and now on heparin , seen by hematology. monitor cbc ,h/h stable,hemmocult was negative Assessment and Plan continue current meds, discharge soon in next day or so Problem Qualifiers (1) Pulmonary embolus: Fanny Cuevas MD Jun 01, 2016 12:26
--- NOTE | 2016-06-01 12:42 | PD.ONC.PN ---
Subjective Subjective Remarks Ms. Bonilla reports feeling better, she continues to have pleuritic chest pain on the right side. She tells me she was able to get up out of bed and walk in the hallway. She denies fevers or chills. She was noted to have a non occlusive DVT in the R leg. Objective Data Date Time Temp Pulse Resp B/P Pulse Ox O2 Delivery O2 Flow Rate FiO2 06/01/16 08:00 96.7 79 16 119/84 96 06/01/16 04:00 98.1 81 18 130/75 94 06/01/16 00:00 98.9 88 18 126/82 94 05/31/16 22:11 93 05/31/16 21:00 96 21 05/31/16 20:00 87 05/31/16 19:31 98.5 94 24 130/68 94 05/31/16 18:00 88 05/31/16 17:00 82 05/31/16 16:00 86 05/31/16 16:00 98.8 82 22 131/76 94 05/31/16 15:00 82 05/31/16 14:00 80 05/31/16 13:00 84 06/01/16 06/01/16 06/01/16 07:00 15:00 23:00 Intake Total 739 ml Balance 739 ml Result Diagram: 06/01/16 0535 06/01/16 0535 Laboratory Results Laboratory Tests Test 06/01/16 05:35 White Blood Count 2.6 TH/MM3 Red Blood Count 2.51 MIL/MM3 Hemoglobin 8.2 GM/DL Hematocrit 23.7 % Mean Corpuscular Volume 94.6 FL Mean Corpuscular Hemoglobin 32.8 PG Mean Corpuscular Hemoglobin 34.7 % Concent Red Cell Distribution Width 17.7 % Platelet Count 185 TH/MM3 Mean Platelet Volume 7.6 FL Neutrophils (%) (Auto) 66.6 % Lymphocytes (%) (Auto) 9.7 % Monocytes (%) (Auto) 12.9 % Eosinophils (%) (Auto) 10.5 % Basophils (%) (Auto) 0.3 % Neutrophils # (Auto) 1.7 TH/MM3 Lymphocytes # (Auto) 0.3 TH/MM3 Monocytes # (Auto) 0.3 TH/MM3 Eosinophils # (Auto) 0.3 TH/MM3 Basophils # (Auto) 0.0 TH/MM3 CBC Comment DIFF FINAL Differential Comment Activated Partial 47.4 SEC Thromboplast Time Sodium Level 143 MEQ/L Potassium Level 3.5 MEQ/L Chloride Level 108 MEQ/L Carbon Dioxide Level 26.8 MEQ/L Anion Gap 8 MEQ/L Blood Urea Nitrogen 8 MG/DL Creatinine 0.46 MG/DL Estimat Glomerular Filtration 135 ML/MIN Rate Random Glucose 95 MG/DL Calcium Level 8.4 MG/DL Total Bilirubin 0.3 MG/DL Aspartate Amino Transf 19 U/L (AST/SGOT) Alanine Aminotransferase 18 U/L (ALT/SGPT) Alkaline Phosphatase 47 U/L Total Protein 5.9 GM/DL Albumin 2.4 GM/DL Culture Results Microbiology Date/Time Procedure Status Source Growth 05/30/16 04:08 Stool Occult Blood (JOSE DANIEL) - Final Complete Stool Stool HEMOCCULT NEGATIVE Administered Medications Medications (Trade) Dose Ordered Sig/Galilea Route PRN Reason Start Time Stop Time Status Last Admin Dose Admin Sodium Chloride 1,000 ml @ 83 mls/hr Q12H3M IV 05/28/16 19:00 06/01/16 04:39 Heparin Sodium/ Dextrose (Heparin-D5W Inj) 250 ml @ 0 mls/hr TITRATE IV 05/28/16 21:32 05/31/16 17:07 Calcium Carbonate (Oscal) 500 mg DAILY PO 05/29/16 09:00 06/01/16 09:06 Multivitamins/ Minerals Therapeutic (Theragran M Tab) 1 tab DAILY PO 05/29/16 09:00 06/01/16 09:06 Oxycodone HCl (Roxicodone) 5 mg Q6H PRN PO PAIN 05/28/16 22:00 05/31/16 17:32 Vitamin B Complex/ Vitamin C (Allbee C) 1 tab DAILY PO 05/29/16 09:00 06/01/16 09:09 Calcium/Vitamin D (Oscal-D 250-125) 500 mg DAILY PO 05/29/16 09:00 06/01/16 09:06 Cholecalciferol (Vitamin D3) 1,000 units DAILY PO 05/29/16 09:00 06/01/16 09:06 IV Flush (NS Flush) 2 ml BID FLUSH 05/29/16 09:00 05/31/16 21:07 Hydromorphone HCl 0.5 mg 0.5 mg Q8HR PRN IV PAIN 5-10 05/28/16 22:15 05/31/16 21:07 Ceftriaxone Sodium/Sodium Chloride (Rocephin Inj/NS Inj) 100 ml @ 200 mls/hr Q24H IV 05/29/16 22:00 05/31/16 21:17 Temazepam (Restoril) 15 mg HS PRN PO sleep 05/28/16 23:00 06/01/16 01:34 Miscellaneous Information Patient in critical care unit? Ass... [id number] XX 05/29/16 03:30 05/29/16 04:00 Chlorhexidine Gluconate (Chlorhexidine 2% Cloth) 3 pack DAILY@04 TOP 05/29/16 04:00 06/02/16 04:01 05/31/16 03:59 Docusate Sodium (Colace) 100 mg DAILY PO 05/30/16 14:30 06/01/16 09:05 Objective Remarks GENERAL PHYSICAL APPEARANCE: Ms. Bonilla is an elderly female, she is laying in bed. She appears to be somewhat pale. She is not in acute respiratory distress. HEENT: Head atraumatic, normocephalic, conjunctive are pale, sclerae are anicteric, EOMI, PERRLA, oral exam no pharyngeal erythema. NECK: No palpable cervical or supraclavicular lymphadenopathy. RESPIRATORY: Good air movement over the upper and middle lung zones bilaterally. She has decreased bibasilar breath sounds. She indicates pain when she takes in a deep breath. CARDIOVASCULAR: Regular rate and rhythm, S1-S2. No obvious murmurs, rubs or gallops. ABDOMEN: Thin belly, soft and nontender, nondistended. No palpable organ enlargement. Specifically no hepatomegaly or splenomegaly. EXTREMITIES: Lower extremities have no pretibial edema or calf tenderness. [employer]: No focal sensory motor deficits. Assessment/Plan Assessment Ms. 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 This was treated with surgical resection, adjuvant radiation therapy as well as adjuvant systemic chemotherapy including Herceptin. She has been in remission for the past close to 10 years. In January of 2016, she was diagnosed with a squamous cell carcinoma of the anal canal. Her disease was staged as T2, N1, M0 (she did have a perirectal lymph node which AVID on PET/CT scan). She was treated with concurrent chemoradiotherapy with curative intent. Treatment was started in early March 2016 and completed in mid April 2016. The patient tolerated treatment reasonably well and was awaiting post-treatment restaging scans as well as restaging physical examination. About 12 days ago, she began to notice a pain along the right side of her chest wall that originated in the posterior aspect and radiating laterally. It was worse with taking in deep breaths and coughing. She reported these symptoms to her primary care physician and was sent to the emergency department where a CT angiogram of the chest revealed a right lower lobe pulmonary embolism. The patient was initiated on anticoagulation with heparin. Plan 1. DVT / PE: May transition to an oral Factor Xa inhibitor such as Eliquis. I would start her at a dose of 5mg PO BID. May D/c heparin when Eliquis is started. She is is clear to d/c home. I will arrange out patient follow up with me at my [facility] office with blood work in the upcoming 1-2 week. Nikolai Velez MD Jun 01, 2016 12:42
[2016-06-01 16:00] VITALS: BP 128/87; PULSE 85; RESP 16; TEMP 97.7; O2SAT 96
[2016-06-01] MEDS ORDERED: CEFD300C PO (17:09)
[2016-06-01] MEDS ORDERED: APIX5TAB PO (17:09)
[2016-06-01] MEDS ORDERED: APIXABAN 5 MG TABLET PO SCH ×2 (18:00→21:00)
--- NOTE | 2016-07-23 20:11 | HHI.DS ---
Discharge Summary Admission Date May 28, 2016 at 21:19 Discharge Date: Jun 01, 2016 Admitting Diagnosis PULMONARY EMBOLUS (1) Pulmonary embolus Diagnosis: Principal (2) UTI (urinary tract infection) Diagnosis: Secondary (3) Lung infiltrate Diagnosis: Secondary (4) Anal carcinoma Diagnosis: Secondary (5) Anemia Diagnosis: Secondary Brief History This 70-year-old female is complaining of sharp pain in the right upper quadrant of the abdomen, right lower chest laterally. She's been had some of this pain yesterday that seemed to get better and then came back again. The pain is aggravated by deep breathing. Pain is fairly severe at times. She is currently being treated for anal cancer. She has been getting radiation as well as chemotherapy. She finished her chemotherapy 2 weeks ago. She takes oxycodone for the pain. She had breast cancer about 10 years ago In er had CTA positive for rt lower lobe pulmonary embolus,also has UTI and possible lung infiltrate. Significant Findings Last Impressions Lower Extremity Ultrasound 05/29/16 0000 Signed Impressions: Service Date/Time: Sunday, May 29, 2016 20:27 - CONCLUSION: Nonocclusive thrombus on the right as described above. Mauri Sr MD FACR Abdomen/Pelvis CT 05/28/16 1849 Signed Impressions: Service Date/Time: May 20:16 - CONCLUSION: Slight bibasilar atelectasis and/or infiltrate is seen. Huber Rico MD CT Angiography 05/28/16 0000 Signed Impressions: Service Date/Time: May 20:16 - CONCLUSION: 1. There is pulmonary embolus within right lower lobe pulmonary arteries. 2. Slight bibasilar atelectasis and/or infiltrate is seen. Huber Rico MD PE at Discharge Lying in bed, nad on room air lungs cta bilaterally heart rrr not tachycardic +bowel sounds, non tender ext no c/c/e Hospital Course Admitted for PE and placed on heaprin with close monitoring of cbc due to anemia ,.Seen uin consultation by Dr Velez who recommended changing to eliquis at discharge. Treated with rocephin for possible uti and lung infiltrate. Pleuritic chest pain improved with treatment and was ambulating w/o sob at discharge. Pt Condition on Discharge: Fair Discharge Disposition: Discharge Home Discharge Instructions DIET: Follow Instructions for: As Tolerated, No Restrictions Activities you can perform: Regular-No Restrictions Follow up Referrals: Oncology - 1 Week with Nikolai Velez MD New Medications: Cefdinir (Cefdinir) 300 Mg Cap 300 MG PO BID Infection #14 Ref 0 CAP Apixaban (Eliquis) 5 Mg Tab 5 MG PO Q12H PE/DVT #60 Ref 6 TAB Continued Medications: Aspirin (Aspirin) 81 Mg Chew 81 MG CHEW DAILY Ref 0 TAB B-Complex Vitamins (Vitamin B-Complex) 1 Tab 1 TAB PO DAILY Calcium (Calcium) 500 Mg Tab 500 MG PO DAILY TAB Calcium Carbonate-Cholecalciferol (Calcium 600 + D) 600-200 Mg-Unit Tab 1 TAB PO DAILY TAB Cholecalciferol (Vitamin D-3) 2,000 Unit Tab 1 TAB PO DAILY Multiple Vitamins W/ Minerals (Multivitamin Adults) 1 Tab 1 TAB PO DAILY Nutritional Supplement Ref 0 TAB Oxycodone (Oxycodone) 5 Mg Cap 5 MG PO Q6H PRN PAIN Ref 0 CAP Fanny Cuevas MD Jul 23, 2016 20:11
== END 2016-06-01 18:06 | disposition home or self-care (01) | DRG 176 ==
LOC: PHED 17:40 → PHEDA 21:19 → PHICU 23:10 → PH3A 05-31 22:00
PROVIDERS: ADMIT Legal Medicine; ATTEND Legal Medicine
DX: I26.99 Other pulmonary embolism without acute cor pulmonale (principal); C21.1 Malignant neoplasm of anal canal; N39.0 Urinary tract infection, site not specified; D64.9 Anemia, unspecified; D72.819 Decreased white blood cell count, unspecified; I10 Essential (primary) hypertension; F32.9 Major depressive disorder, single episode, unspecified; K59.00 Constipation, unspecified; M81.0 Age-related osteoporosis without current pathological fracture; Z98.82 Breast implant status; Z87.891 Personal history of nicotine dependence; Z85.3 Personal history of malignant neoplasm of breast; Z92.21 Personal history of antineoplastic chemotherapy
CPT/HCPCS: 71275; 74177; 80053; 81001; 82272; 82728; 83540; 83550; 85025; 85610; 85730; 87086; 87641; 93005; 93970; 94150; 96361; 96374; 96375; J0696; J1170; J1644; J2405; J7030; Q9967